=== PATIENT | male | born 1985 | race Caucasian/White ===

== ENCOUNTER 2023-03-11 19:44 | Emergency (ER) | payer OTHER ==
[2023-03-11 20:34] LABS: CORONAVIRUS COVID-19 NAA NEGATIVE (NEGATIVE)
== END 2023-03-11 20:41 | disposition left against medical advice (07) ==
LOC: JD.ED 19:44
DX: M79.10 Myalgia, unspecified site (principal); Z86.16 Personal history of COVID-19; Z20.822 Contact with and (suspected) exposure to COVID-19
CPT/HCPCS: 0241U; 87651; 99283

== ENCOUNTER 2023-03-13 14:51 | Emergency (ER) | payer OTHER ==
[2023-03-13] MEDS ORDERED: Sodium Chloride 0.9% 1,000 ML IV ONE (18:37)
[2023-03-13] MEDS ORDERED: HYDROmorphone 0.5 MG/0.5 ML Syringe IVPUSH ONE ×2 (18:37→20:42)
== END 2023-03-13 20:52 | disposition home or self-care (01) ==
LOC: JD.ED 14:51
DX: J18.9 Pneumonia, unspecified organism (principal); B37.0 Candidal stomatitis; E66.9 Obesity, unspecified; Z68.30 Body mass index [BMI] 30.0-30.9, adult; Z86.16 Personal history of COVID-19
CPT/HCPCS: 36415; 71045; 80053; 81003; 85025; 86140; 96361; 96374; 96376; 99285; J1170; J7030; 99284